=== PATIENT | female | born 1950 | race Caucasian/White ===

== ENCOUNTER 2016-09-06 12:59 | Emergency (ER) | payer BC ==
[2016-09-06 13:32] VITALS: BP 158/88; PULSE 80; RESP 16; TEMP 99.1; O2SAT 93
--- NOTE | 2016-09-06 14:36 | UCPHY ---
[id number]/08/17 14:30 HPI/ROS: HPI: 65-year-old female presents to urgent care with chief concern fever, cough , myalgias, chills. Symptoms onset suddenly 2 days ago. Reports associated nasal congestion, severe body aches. Denies dizziness, shortness of breath, chest pain, abdominal pain, nausea, or vomiting. Had a flu shot this year. No history of asthma or pneumonia. Lives in [place]. ROS:10 point review of systems is negative other than as stated in HPI (Veronica Rivas) Social History: Lives in [place] (Veronica Rivas) Physical Exam: Vital signs stable, reviewed by me General: Awake, alert, calm, cooperative. No acute distress. Head: Normalocephalic. Atraumatic. EENT: PERRLA. EOMI. No pallor or injection. Anicteric. No nystagmus. No injection. TMs intact bilaterally with normal landmarks. Rhinorrhea present. Mildly erythematous nasal turbinates. Oropharynx without erythema, exudates. Uvula midline. Neck: Supple, nontender. No lymphadenopathy. Full range of motion. No meningismus. Respiratory: Breathing unlabored. Breath sounds equal bilaterally and clear to auscultation. No adventitious sounds. CV: Chest nontender, atraumatic. Heart rate regular. No murmur, distal pulses 2+ bilaterally. Brisk cap refill all extremities. GI: Abdomen soft, nontender. Bowel sounds normoactive and positive x4 quadrants. Neuro: Alert. Oriented x 3. Speech clear. Nonfocal cranial nerves throughout. Sensation intact all extremities. Skin: Skin warm, dry, intact. No rashes, abrasions, or lacerations. Skin turgor normal. Extremities: Full range of motion in all 4 extremities. Strength 5+ all extremities. (Veronica Rivas) Constitutional: Initial Vital Signs Temperature (C) 37.3 C 09/06/16 13:29 Heart Rate 80 09/06/16 13:29 Respiratory Rate 16 09/06/16 13:29 Blood Pressure 158/88 H 09/06/16 13:29 O2 Sat (%) 93 09/06/16 13:29 O2 Delivery Mode Room Air Allergies/Adverse Reactions: No Known Allergies Allergy (Verified 09/06/16 13:31) Home Medications: [facility] Oseltamivir Phosphate [Tamiflu] 75 mg PO BID #10 cap 09/06/16 Prevacid 09/06/16 Simvastatin 09/06/16 Medical Decision Making ED Course/Re-evaluation: Flu swab positive for influenza A. Tamiflu prescribed. (Veronica Rivas) [facility] [employer] supervision Physician documentation: The patient was evaluated and managed by the nurse practitioner. My co- signature indicates that I have reviewed this chart and I agree with the findings and plan of care as documented. I am the secondary supervising physician. (Chris Carrero) Departure - Departure Disposition: Home, Routine, Self-Care Clinical Impression: Influenza A Condition: Good Instructions: Influenza (ED) Additional Instructions: Plan: Tamiflu as directed You may use 600 mg of ibuprofen every 6 hours for fever, inflammation, or pain. Always take ibuprofen with food and stay well hydrated while taking. Do not exceed the maximum allowable dose in a 24 hour period which is 2400 mg. You may use 1000 mg of Tylenol every 8 hours. This may be staggered with the ibuprofen. Do not exceed the maximum dose in a 24 hour period which is 3 GM or 3000 mg. Drink plenty of fluids [id number] cough and cold medicine as needed Follow up with primary care when you return to [place] recheck Return for recheck or go to emergency department if he developed difficulty breathing or swallowing, or other concerning symptoms including chest pain Referrals: OUT OF STATE,. [Primary Care Provider] - As per Instructions Prescriptions: Oseltamivir Phosphate [Tamiflu] 75 mg PO BID #10 cap - PQRS PQRS Measurement: 134: Depression screening and followup, PRIME MD-PHQ2 (12 years and older) Over the last 2 weeks, how often have you been bothered by any of the following problems? 1. Feeling down, depressed, or hopeless? 2. Little interest or pleasure in doing things? Patient answered no to both 1 and 2 130: Documentation of medications. Reviewed all patient medications, doses, route and frequency. 226: Do you smoke? No 47: 65 and older: Advanced care planning. Patient declined 51: 18 years old and older with diagnosis of COPD, spirometry performance. Patient has no history of COPD 52: 18 years old and older with COPD and symptoms of COPD or FEV1<60% no history of COPD (Veronica Rivas)
== END 2016-09-06 14:44 | disposition home or self-care (01) ==
LOC: CED 12:59
DX: J11.1 Influenza due to unidentified influenza virus with other respiratory manifestations (principal)
CPT/HCPCS: 87400-PO; G0463-PO